=== PATIENT | male | born 1990 | race Caucasian/White ===

== ENCOUNTER 2019-08-30 13:19 | Emergency (ER) | payer SELFPAY ==
[~2019-08-30] VITALS: Ht 182.9 cm; Wt 82.1 kg
--- NOTE | 2019-08-30 13:32 | NUR ---
CALLED NO ANSWER
--- NOTE | 2019-08-30 14:10 | NUR ---
REPEAT B/P 144/86, 75 PROVIDER MADE AWARE
[2019-08-30 14:23] LABS: RAPID INFLUENZA A Negative (Negative); RAPID INFLUENZA B Negative (Negative)
[2019-08-30 14:27] LABS: BASOPHILS # (AUTO) 0.02 x10^3/uL (0-0.1); BASOPHILS % (AUTO) 0 % (0-1); EOSINOPHILS # (AUTO) 0.08 x10^3/uL (0-0.4); EOSINOPHILS % (AUTO) 1 % (1-7); LYMPHOCYTES # (AUTO) 1.78 x10^3/uL (1-3.4); LYMPHOCYTES % (AUTO) 19 % (22-44); MD NO; MEAN CORPUSCULAR HGB CONC 34.1 g/dL (33.2-36.2); MEAN CORPUSCULAR VOLUME 88.1 fL (81-97); MEAN PLATELET VOLUME 7.7 fL (7.4-10.4); MONOCYTES # (AUTO) 1.27 x10^3/uL (0.2-0.8); MONOCYTES % (AUTO) 13 % (2-9); NEUTROPHILS % (AUTO) 67 % (42-75); PLATELET COUNT 207 x10^3/uL (130-400); RED CELL DISTRIBUTION WIDTH 14.5 % (9.4-14.8)
[2019-08-30] MEDS ORDERED: ACETAMINOPHEN 500 MG TABLET PO ONE (14:30)
[2019-08-30 14:37] LABS: ALBUMIN 3.5 g/dL (3.4-5.0); ANION GAP 9 mmol/L (5-15); CALCIUM 9.2 mg/dL (8.5-10.1); CHLORIDE 99 mmol/L (98-107)
[2019-08-30 14:45] LABS: ALANINE AMINOTRANSFERASE 34 U/L (12-78); ALKALINE PHOSPHATASE 62 U/L (45-117); BILIRUBIN,TOTAL 0.9 mg/dL (0.2-1.0); CREATINE KINASE, TOTAL 355 U/L (39-308); CREATININE 0.89 mg/dL (0.7-1.3); TOTAL PROTEIN 7.7 g/dL (6.4-8.2)
[2019-08-30] MEDS ORDERED: ACETAMINOPHEN 500 MG TABLET ONE (14:46)
--- NOTE | 2019-08-30 15:00 | NUR ---
MEDICATED PER EMAR PROVIDED WITH WATER AFTER CLARIFICATUION WITH PROVIDER MADE AWARE OF NEED FOR UA XRAY AT BEDSIDE AT 1450
[2019-08-30] MEDS ORDERED: ALBUTEROL/IPRATROPIUM 2.5MG/0.5MG, 3 ML ONE (15:39)
--- NOTE | 2019-08-30 15:49 | NUR ---
RT AT BEDSIDE PATIENT COUGHING UP BLOOD TINGED GREEN SPUTUNM-PROVIDER MADE AWARE
[2019-08-30] MEDS ORDERED: ALBUTEROL/IPRATROPIUM 2.5MG/0.5MG, 3 ML NPPB ONE (16:00)
--- NOTE | 2019-08-30 16:14 | NUR ---
UP TO ATTEMPT TO VOID AGAIN REPORTS BREATHING TREATMENT "HELPED ALOT"
[2019-08-30] MEDS ORDERED: KETOROLAC 30 MG/1 ML ONE (16:47)
--- NOTE | 2019-08-30 16:51 | NUR ---
AFTER DISCUSSION WITH PROVIDER: TO BLADDER SCAN THEN STRAIGHT CATH IF NECCESARY (KIDNEY PAIN) BLADDER SCAN FOR 350, STRAIGHT CATHERIZED FOR SAMPLE WITH 330ML DRAINED OF DARK URINE
[2019-08-30 16:53] VITALS: BP 145/77
[2019-08-30] MEDS ORDERED: KETOROLAC 30 MG/1 ML IM ONE (17:00)
[2019-08-30 17:04] LABS: MICROSCOPIC NOT IND
[2019-08-30 17:10] LABS: CULTURE INDICATED? NO
== END 2019-08-30 17:26 | disposition home or self-care (01) ==
LOC: ED 14:19
DX: B34.9 Viral infection, unspecified (principal)
CPT/HCPCS: 36415; 71045; 80053; 81003; 82550; 83605; 85025; 87400; 93005; 94640; 99285

== ENCOUNTER 2019-10-20 19:52 | Emergency (ER) | payer SELFPAY ==
[~2019-10-20] VITALS: Ht 182.9 cm; Wt 78.2 kg
[2019-10-20 21:59] VITALS: BP 111/52
--- NOTE | 2019-10-20 22:02 | NUR ---
PT TO TRIAGE FOR VS RECHECK
[2019-10-20] MEDS ORDERED: ACETAMINOPHEN 500 MG TABLET ONE (22:09)
--- NOTE | 2019-10-20 22:11 | NUR ---
PT REQUESTING TYLENOL FOR PAIN, PA TO PLACE ORDER. PT MEDICATED PER MAR
[2019-10-20] MEDS ORDERED: ACETAMINOPHEN 500 MG TABLET PO ONE (22:30)
== END 2019-10-20 23:04 | disposition left against medical advice (07) ==
LOC: ED 20:02
DX: M79.89 Other specified soft tissue disorders (principal)
CPT/HCPCS: 99284

== ENCOUNTER 2019-10-23 17:12 | Emergency (ER) | payer SELFPAY ==
[~2019-10-23] VITALS: Ht 182.9 cm; Wt 80.1 kg
--- NOTE | 2019-10-23 17:30 | NUR ---
PT TO ROOM
[2019-10-23] MEDS ORDERED: PIPERACILLIN/TAZO/PMX 3.375GM 50 ML ONE (18:17)
[2019-10-23] MEDS ORDERED: PIPERACILLIN/TAZO/PMX 3.375GM 50 ML IV ONE (18:30)
[2019-10-23] MEDS ORDERED: SODIUM CHLORIDE FLUSH 10ML SYR IVF ONE (18:30)
[2019-10-23 18:32] LABS: BASOPHILS # (AUTO) 0.03 x10^3/uL (0-0.1); BASOPHILS % (AUTO) 1 % (0-1); EOSINOPHILS # (AUTO) 0.47 x10^3/uL (0-0.4); EOSINOPHILS % (AUTO) 9 % (1-7); LYMPHOCYTES # (AUTO) 1.04 x10^3/uL (1-3.4); LYMPHOCYTES % (AUTO) 20 % (22-44); MD NO; MEAN CORPUSCULAR HEMOGLOBIN 28.8 pg (27.5-34.5); MEAN CORPUSCULAR HGB CONC 33.2 g/dL (33.2-36.2); MEAN CORPUSCULAR VOLUME 86.7 fL (81-97); MEAN PLATELET VOLUME 6.7 fL (7.4-10.4); MONOCYTES % (AUTO) 9 % (2-9); NEUTROPHILS # (AUTO) 3.28 x10^3/uL (1.8-6.8); NEUTROPHILS % (AUTO) 62 % (42-75); PLATELET COUNT 295 x10^3/uL (130-400); RED BLOOD COUNT 4.06 x10^6/uL (4.38-5.82); RED CELL DISTRIBUTION WIDTH 15.2 % (9.4-14.8)
[2019-10-23 18:38] LABS: ALBUMIN 2.5 g/dL (3.4-5.0); ANION GAP 7 mmol/L (5-15); CALCIUM 8.5 mg/dL (8.5-10.1); CHLORIDE 103 mmol/L (98-107); CREATININE 0.83 mg/dL (0.7-1.3)
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
[2019-10-23 19:11] VITALS: BP 126/58
--- NOTE | 2019-10-23 19:12 | NUR ---
PT RESTING IN [facility]. UP FOR RECHECK
== END 2019-10-23 19:46 | disposition home or self-care (01) ==
LOC: ED 19:45
DX: L03.116 Cellulitis of left lower limb (principal)
CPT/HCPCS: 36415; 80048; 82040; 85025; 96365; 99284; J2543